=== PATIENT | male | born 1970 | race Caucasian/White ===

== ENCOUNTER 2023-01-08 23:16 | Emergency (ER) | payer MEDICARE, MEDICAID ==
[~2023-01-08] VITALS: Ht 180 cm; Wt 105.0 kg
--- NOTE | 2023-01-08 23:50 | ED General ---
General Chief Complaint: Dizziness/Syncope Stated Complaint: DIZZY Nursing Triage Note: BROUGHT IN BY [facility] C/O DIZZINESS, FRONTAL HEADACHE, VOMITTING, DOUBLE VISION SINCE 2229. REPORTS POSSIBLE FOOD POISIONING ON 01/06/23. EMS GAVE 4MG ZOFRAN, IV FLUIDS [employer]. Source of Information: Patient, EMS Exam Limitations: No Limitations History of Present Illness Date Seen by Provider: Jan 08, 2023 Time Seen by Provider: 23:36 Allergies and Home Medications Allergies Coded Allergies: codeine (Verified Allergy, Unknown, 01/08/23) Past [id number] Hx Patient Social History Tobacco Use?: No Substance use?: Yes Substance type: Marijuana Alcohol Use?: No Pt feels they are or have been: No Past Medical History Surgery/Hospitalization HX: HERNIA REPAIR, RENAL CANCER REMOVED, TBI, SLEEP DIFFICULTIES. Physical Exam Vital Signs Vital Signs - First Documented 01/08/23 23:18 Temp 36.2 Pulse 75 Resp 16 B/P (MAP) 147/101 (116) Pulse Ox 96 O2 Delivery Room Air Capillary Refill : Less Than 3 Seconds Height, Weight, BMI Height: '" Weight: lbs. oz. kg; 32.00 BMI Method: Progress/Results/Core Measures Suspected Sepsis SIRS Temperature: Pulse: 75 Respiratory Rate: 16 Laboratory Tests 01/08/23 23:23: White Blood Count 10.0 Blood Pressure 147 /101 Mean: 116 Laboratory Tests 01/08/23 23:23: Creatinine 1.25, Platelet Count 213, Total Bilirubin 0.2 Results/Orders Lab Results Laboratory Tests Test 01/08/23 23:23 01/08/23 23:55 01/09/23 00:49 Range/Units White Blood Count 10.0 4.3-11.0 10^3/uL Red Blood Count 4.73 4.30-5.52 10^6/uL Hemoglobin 13.9 13.3-17.7 g/dL Hematocrit 42 40-54 % Mean Corpuscular Volume 89 80-99 fL Mean Corpuscular Hemoglobin 29 25-34 pg Mean Corpuscular Hemoglobin Concent 33 32-36 g/dL Red Cell Distribution Width 13.2 10.0-14.5 % Platelet Count 213 130-400 10^3/uL Mean Platelet Volume 12.9 H 9.0-12.2 fL Sodium Level 141 135-145 MMOL/L Potassium Level 3.4 L 3.6-5.0 MMOL/L Chloride Level 104 98-107 MMOL/L Carbon Dioxide Level 23 21-32 MMOL/L Anion Gap 14 5-14 MMOL/L Blood Urea Nitrogen 14 7-18 MG/DL Creatinine 1.25 0.60-1.30 MG/DL Estimat Glomerular Filtration Rate 70 BUN/Creatinine Ratio 11 Glucose Level 129 H 70-105 MG/DL Calcium Level 9.9 8.5-10.1 MG/DL Corrected Calcium 9.7 8.5-10.1 MG/DL Magnesium Level 1.7 1.6-2.4 MG/DL Total Bilirubin 0.2 0.1-1.0 MG/DL Aspartate Amino Transf (AST/SGOT) 15 5-34 U/L Alanine Aminotransferase (ALT/SGPT) 7 0-55 U/L Alkaline Phosphatase 55 40-136 U/L Total Protein 6.7 6.4-8.2 GM/DL Albumin 4.3 3.2-4.5 GM/DL Serum Alcohol < 10 <10 MG/DL Urine Color YELLOW Urine Clarity CLEAR Urine pH 6.0 5-9 Urine Specific [place] 1.015 L 1.016-1.022 Urine Protein NEGATIVE NEGATIVE Urine Glucose (UA) NEGATIVE NEGATIVE Urine Ketones NEGATIVE NEGATIVE Urine Nitrite NEGATIVE NEGATIVE Urine Bilirubin NEGATIVE NEGATIVE Urine Urobilinogen 0.2 < = 1.0 MG/DL Urine Leukocyte Esterase NEGATIVE NEGATIVE Urine RBC (Auto) NEGATIVE NEGATIVE Urine RBC NONE /HPF Urine WBC NONE /HPF Urine Squamous Epithelial Cells NONE /HPF Urine Crystals PRESENT H /LPF Urine Amorphous Sediment RARE NALDO URATES H /LPF Urine Bacteria TRACE /HPF Urine Casts NONE /LPF Urine Mucus SMALL H /LPF Urine Culture Indicated NO Urine Opiates Screen NEGATIVE NEGATIVE Urine Oxycodone Screen NEGATIVE NEGATIVE Urine Methadone Screen NEGATIVE NEGATIVE Urine Propoxyphene Screen NEGATIVE NEGATIVE Urine Barbiturates Screen NEGATIVE NEGATIVE Ur Tricyclic Antidepressants Screen NEGATIVE NEGATIVE Urine Phencyclidine Screen NEGATIVE NEGATIVE Urine Amphetamines Screen NEGATIVE NEGATIVE Urine Methamphetamines Screen NEGATIVE NEGATIVE Urine Benzodiazepines Screen NEGATIVE NEGATIVE Urine Cocaine Screen NEGATIVE NEGATIVE Urine Cannabinoids Screen POSITIVE H NEGATIVE Influenza Type A (RT-PCR) Not Detected Not Detecte Influenza Type B (RT-PCR) Not Detected Not Detecte SARS-CoV-2 RNA (RT-PCR) Not Detected Not Detecte My Orders Orders - CARIDAD AKBAR MD Alcohol (01/08/23 23:46) Cbc No Diff (01/08/23 23:46) Comprehensive Metabolic Panel (01/08/23 23:46) Drug Screen Stat (Urine) (01/08/23 23:46) Magnesium (01/08/23 23:46) Ua Culture If Indicated (01/08/23 23:46) Ed Iv/Invasive Line Start (01/08/23 23:46) Monitor-Rhythm Ecg Trace Only (01/08/23 23:46) Ondansetron Injection (Zofran Injectio (01/09/23 00:00) Fentanyl Inj (Sublimaze Injection) (01/09/23 00:00) Ct Head Wo-R/O Stroke (01/08/23 23:46) Covid 19 Inhouse Test (01/09/23 00:44) Influenza A And B By Pcr (01/09/23 00:44) Ekg Tracing (01/09/23 00:49) Droperidol Inj (Ed Only) (Inapsine Inj ( (01/09/23 01:15) Pantoprazole Injection (Protonix Injecti (01/09/23 03:00) Promethazine Injection (Phenergan Injec (01/09/23 03:00) Lactated Ringers (Lr 1000 Ml Iv Solution (01/09/23 03:00) Medications Given in ED Current Medications Medications Dose Ordered Sig/Xiomara Route Start Time Stop Time Status Last Admin Dose Admin Droperidol 2.5 mg ONCE ONCE IV 01/09/23 01:15 01/09/23 01:16 DC 01/09/23 01:06 2.5 MG Fentanyl Citrate 50 mcg ONCE ONCE IVP 01/09/23 00:00 01/09/23 00:01 DC 01/08/23 23:53 50 MCG Lactated Ringer's 1,000 ml @ 0 mls/hr Q0M ONCE IV 01/09/23 03:00 01/09/23 03:01 DC 01/09/23 03:05 0 MLS/HR Ondansetron HCl 4 mg ONCE ONCE IVP 01/09/23 00:00 01/09/23 00:01 DC 01/08/23 23:53 4 MG Pantoprazole 40 mg ONCE ONCE IV 01/09/23 03:00 01/09/23 03:01 DC 01/09/23 03:05 40 MG Promethazine HCl 25 mg ONCE ONCE IVP 01/09/23 03:00 01/09/23 03:01 DC 01/09/23 03:05 25 MG Vital Signs/I&O 01/08/23 23:18 Temp 36.2 Pulse 75 Resp 16 B/P (MAP) 147/101 (116) Pulse Ox 96 O2 Delivery Room Air 01/09/23 00:00 Intake Total 400 ml Balance 400 ml Capillary Refill : Less Than 3 Seconds Blood Pressure Mean: 116 ECG Initial ECG Impression Date: Jan 09, 2023 Initial ECG Impression Time: 00:57 Initial ECG Rate: 61 Initial ECG Rhythm: Normal Sinus Initial ECG Intervals: Normal Initial ECG Impression: Normal Comment Normal sinus rhythm with no ST elevation or depression. No abnormal intervals or axis deviation. Departure Impression Primary Impression: Nausea & vomiting Qualified Codes: R11.2 - Nausea with vomiting, unspecified Additional Impressions: Severe headache Diarrhea Qualified Codes: R19.7 - Diarrhea, unspecified Disposition: 01 HOME, SELF-CARE Condition: Improved Departure-Patient Inst. Decision time for Depature: 04:07 Referrals: UNKNOWN (PCP) Primary Care Physician Patient Instructions: Cannabis hyperemesis syndrome, Headache, Adult, Nausea and Vomiting, Adult ED Add. Discharge Instructions: Start with a noncarbonated clear liquid diet and gradually advance your diet with small quantities of bland food as tolerated. Avoid fatty/greasy foods and dairy products until your diarrhea has been resolved for at least a couple of days. Use Zofran (ondansetron) as prescribed for nausea or vomiting. Add Phenergan (promethazine) as prescribed for nausea not controlled by Zofran. Please be advised that Phenergan may cause drowsiness. Do not drive, operate machinery, or make important decisions while on this medication. Avoid use of marijuana and THC products as it may trigger severe GI symptoms like the ones you are experiencing today. For headache and other pain you may take Tylenol (acetaminophen) up to 1000 mg every 6 hours as needed. Add ibuprofen up to 600 mg every 6 hours as needed for additional pain relief. Return to the ER if you have worsening symptoms despite following these instructions. All discharge instructions reviewed with patient and/or family. Voiced understanding. Scripts Promethazine HCl (Promethazine Tablet) 25 Mg Tablet 25 MG PO Q6H PRN for NAUSEA/VOMITING-2ND LINE, #10 TAB Prov: CARIDAD AKBAR MD 01/09/23 Ondansetron (Ondansetron Odt) 4 Mg Tab.rapdis 4 MG SL Q4H PRN for NAUSEA/VOMITING, #10 TAB Prov: CARIDAD AKBAR MD 01/09/23 CARIDAD AKBAR MD Jan 08, 2023 23:50
[2023-01-08 23:54] LABS: HEMATOCRIT 42 % (40-54); HEMOGLOBIN 13.9 g/dL (13.3-17.7); MEAN CORPUSCULAR HEMOGLOBIN 29 pg (25-34); MEAN CORPUSCULAR HGB CONC 33 g/dL (32-36); MEAN CORPUSCULAR VOLUME 89 fL (80-99); MEAN PLATELET VOLUME 12.9 fL (9.0-12.2); PLATELET COUNT 213 10^3/uL (130-400)
[2023-01-08 23:55] LABS: ALBUMIN 4.3 GM/DL (3.2-4.5)
[2023-01-08 23:56] LABS: CHLORIDE 104 MMOL/L (98-107); POTASSIUM 3.4 MMOL/L (3.6-5.0); SODIUM 141 MMOL/L (135-145)
[2023-01-08 23:57] LABS: CALCIUM 9.9 MG/DL (8.5-10.1)
[2023-01-08 23:58] LABS: GLUCOSE 129 MG/DL (70-105); TOTAL PROTEIN 6.7 GM/DL (6.4-8.2)
[2023-01-08 23:59] LABS: CARBON DIOXIDE 23 MMOL/L (21-32)
[2023-01-09] LABS: BILIRUBIN,TOTAL 0.2 MG/DL (0.1-1.0)
[2023-01-09] MEDS ORDERED: fentaNYL INJ 100 MCG/2 ML AMP IVP ONE
[2023-01-09] MEDS ORDERED: ONDANSETRON 4 MG/2 ML (SDV) Z0FRAN IVP ONE
[2023-01-09 00:01] LABS: ALKALINE PHOSPHATASE 55 U/L (40-136)
[2023-01-09 00:02] LABS: CREATININE SERUM 1.25 MG/DL (0.60-1.30); GFR ESTIMATED 70
[2023-01-09 00:03] LABS: BUN/CREATININE RATIO 11
[2023-01-09 00:04] LABS: MAGNESIUM 1.7 MG/DL (1.6-2.4)
[2023-01-09 00:05] LABS: ALANINE AMINOTRANSFERASE 7 U/L (0-55)
[2023-01-09 00:12] LABS: BILIRUBIN,URINE NEGATIVE (NEGATIVE); CLARITY,URINE CLEAR; COLOR,URINE YELLOW; GLUCOSE, URINE (UA) NEGATIVE (NEGATIVE); KETONES,URINE NEGATIVE (NEGATIVE); LEUKOCYTE ESTERASE ,URINE NEGATIVE (NEGATIVE); NITRITE,URINE NEGATIVE (NEGATIVE); PROTEIN,URINE NEGATIVE (NEGATIVE)
[2023-01-09 00:28] LABS: AMPHETAMINE SCREEN, URINE NEGATIVE (NEGATIVE); BARBITURATE SCREEN URINE NEGATIVE (NEGATIVE); BENZODIAZEPINES SCREEN URINE NEGATIVE (NEGATIVE); CANNABINOID SCREEN, URINE POSITIVE (NEGATIVE); COCAINE SCREEN URINE NEGATIVE (NEGATIVE); METHADONE STAT NEGATIVE (NEGATIVE); OPIATE SCREEN URINE NEGATIVE (NEGATIVE); OXYCODONE STAT NEGATIVE (NEGATIVE); PROPOXYPHENE STAT NEGATIVE (NEGATIVE); TRICYCLIC ANTIDEPRESSANTS SCRE NEGATIVE (NEGATIVE)
[2023-01-09 00:30] LABS: AMORPHOUS SEDIMENT,UR RARE AMOR URATES /LPF; BACTERIA,URINE TRACE /HPF
[2023-01-09] MEDS ORDERED: DROPERIDOL 5 MG/2 ML (INAPSINE) ED ONLY! IV ONE (01:15)
[2023-01-09] MEDS ORDERED: PROMETHAZINE INJ 25 MG/ML (PHENERGAN) AMP IVP ONE (03:00)
[2023-01-09] MEDS ORDERED: LACTATED RINGERS 1,000 ML IV ONE (03:00)
[2023-01-09] MEDS ORDERED: PANTOPRAZOLE 40 MG (PROTONIX) VIAL IV ONE (03:00)
[2023-01-09] MEDS ORDERED: PROM25TA14 PO (04:10)
[2023-01-09] MEDS ORDERED: ONDA4TAB11 SL (04:10)
[2023-01-09 04:11] VITALS: BP 99/64
--- NOTE | 2023-01-09 07:02 | Diagnostic Imaging Report ---
PROCEDURE: CT head wo r/o stroke. TECHNIQUE: Multiple contiguous axial images were obtained through the brain without the use of intravenous contrast. Auto Exposure Controls were utilized during the CT exam to meet ALARA standards for radiation dose reduction. INDICATION: Dizziness. COMPARISON: No prior studies are available for comparison. The ventricles and sulci are within normal limits. No sulcal effacement or midline shift is identified. No acute intra-axial or extra-axial hemorrhage is detected. Cisterns are patent. The visualized paranasal sinuses are clear. IMPRESSION: No acute intracranial process is detected. Dictated by: Dictated on workstation # [id number]
== END 2023-01-09 04:15 | disposition home or self-care (01) ==
LOC: ER 23:22
DX: R11.2 Nausea with vomiting, unspecified (principal); R51.9 Headache, unspecified; R19.7 Diarrhea, unspecified; Z20.822 Contact with and (suspected) exposure to COVID-19
CPT/HCPCS: 36415; 70450; 80053; 80306; 80320; 81000; 83735; 85027; 87636; 93005; 93041